=== PATIENT | female | born 1980 | race Hispanic/Latino ===

== ENCOUNTER 2020-08-09 08:02 | Outpatient (CLI) | payer MEDICAID ==
--- NOTE | 2020-08-09 08:51 | MMO ---
Left Breast MAMMO Un[facility]at [facility]ag [facility]. CLINICAL HISTORY: Patient is 39 years old and is seen for diagnostic exam. The patient has no family history of breast cancer. The patient has no personal history of cancer. VIEWS: The views performed were: left craniocaudal with tomosynthesis; left mediolateral oblique with tomosynthesis; and left mediolateral with tomosynthesis. FILMS COMPARED: The present examination has been compared to prior imaging studies performed at [facility] on 07/27/2020, and at [facility] on 08/09/2020. This study has been interpreted with the assistance of computer-aided detection. MAMMOGRAM FINDINGS: The breast is heterogeneously dense, which could obscure a lesion on mammography. There is a mass measuring 6 x 8 mm with circumscribed margins seen in the left breast at 9 o'clock. CYST ON ULTRASOUND There are no suspicious masses, suspicious calcifications, or new areas of architectural distortion. IMPRESSION: THERE IS NO MAMMOGRAPHIC EVIDENCE OF MALIGNANCY. A ROUTINE FOLLOW-UP MAMMOGRAM IN 1 YEAR IS RECOMMENDED. THE RESULTS OF THIS EXAM WERE SENT TO THE PATIENT. ACR BI-RADS Category 2 - Benign finding MAMMOGRAPHY NOTE: 1. A negative mammogram report should not delay a biopsy if a dominant of clinically suspicious mass is present. 2. Approximately 10% to 15% of breast cancers are not detected by mammography. 3. Adenosis and dense breasts may obscure an underlying neoplasm. Reported by: FRANKLIN HURT MD Electonically Signed: [id number]
--- NOTE | 2020-08-09 10:31 | ULT ---
LEFT BREAST ULTRASOUND LIMITED: HISTORY: The patient returns for some additional views of the left breast with diagnostic mammogram as well as left breast ultrasound. Attention is made to the 9 o'clock position of the left breast 3 cm from th e nipple where there is a circumscribed slightly bilobed shaped 0.4 x 0.7 x 0.8 cm cyst. This appear s to correspond to the nodular area on mammogram. No evidence for solid mass or malignancy. IMPRESSION: BIRADS category 2, benign findings. Continued annual followup screening mammogram is recommended. Findings were discussed with the patient in this regard. POS: OFF
== END 2020-08-09 08:03 | disposition home or self-care (01) ==
LOC: BICMAMMO 08:02
PROVIDERS: ATTEND Advanced Practice Midwife
DX: R92.2 Inconclusive mammogram (principal)
CPT/HCPCS: G0279